=== PATIENT | male | born 1985 | race Caucasian/White ===

== ENCOUNTER 2018-06-06 02:06 | Observation (INO) | payer OTHER ==
[~2018-06-06] VITALS: Ht 190.5 cm; Wt 83.3 kg
[2018-06-06 02:49] LABS: BASOPHILS # (AUTO) 0.07 x10^3/uL (0-0.1); BASOPHILS % (AUTO) 1 % (0-1); EOSINOPHILS # (AUTO) 0.13 x10^3/uL (0-0.4); EOSINOPHILS % (AUTO) 1 % (1-7); LYMPHOCYTES # (AUTO) 3.17 x10^3/uL (1-3.4); LYMPHOCYTES % (AUTO) 28 % (22-44); MD NO; MEAN CORPUSCULAR HEMOGLOBIN 30.4 pg (27.5-34.5); MEAN CORPUSCULAR HGB CONC 34.1 g/dL (33.2-36.2); MEAN PLATELET VOLUME 7.3 fL (7.4-10.4); MONOCYTES # (AUTO) 1.15 x10^3/uL (0.2-0.8); MONOCYTES % (AUTO) 10 % (2-9); NEUTROPHILS % (AUTO) 60 % (42-75); PLATELET COUNT 313 x10^3/uL (130-400); RED BLOOD COUNT 4.75 x10^6/uL (4.38-5.82); RED CELL DISTRIBUTION WIDTH 13.2 % (9.4-14.8)
[2018-06-06 02:54] LABS: AMPHETAMINE SCREEN, URINE Positive (Negative); BARBITURATE SCREEN, URINE Negative (Negative); BENZODIAZEPINE SCREEN, URINE Negative (Negative); CANNABINOID SCREEN, URINE Positive (Negative); COCAINE SCREEN, URINE Negative (Negative); METHADONE SCREEN, URINE Negative (Negative); OPIATE SCREEN, URINE Positive (Negative)
[2018-06-06 02:57] LABS: ALANINE AMINOTRANSFERASE 61 U/L (12-78); ALBUMIN 3.7 g/dL (3.4-5.0); ANION GAP 7 mmol/L (5-15); CALCIUM 8.7 mg/dL (8.5-10.1); CHLORIDE 110 mmol/L (98-107); CREATININE 1.01 mg/dL (0.7-1.3)
[2018-06-06 02:58] LABS: ALKALINE PHOSPHATASE 130 U/L (45-117); BILIRUBIN,TOTAL 0.4 mg/dL (0.2-1.0); TOTAL PROTEIN 7.5 g/dL (6.4-8.2)
[2018-06-06 03:02] LABS: ACETAMINOPHEN < 2 mcg/mL (10-30)
[2018-06-06] MEDS ORDERED: IBUPROFEN 600 MG TABLET PO PRN (09:00)
[2018-06-06] MEDS ORDERED: ACETAMINOPHEN 325 MG TABLET PO PRN (09:00)
[2018-06-06] MEDS ORDERED: POTASSIUM CHLORIDE 20 MEQ TAB.ER.PRT PO ONE (11:00)
[2018-06-06] MEDS ORDERED: POTASSIUM CHLORIDE 20 MEQ TAB.ER.PRT ONE (12:21)
[2018-06-06] MEDS ORDERED: DICYCLOMINE 10 MG CAPSULE ONE (18:30)
[2018-06-06] MEDS ORDERED: LORazepam 1MG TABLET ONE (18:30)
[2018-06-06] MEDS: DICYCLOMINE 10 MG CAPSULE PO SCH (21:00)
[2018-06-06] MEDS: TRAZODONE 150MG TABLET PO SCH (21:00)
[2018-06-07 06:01] LABS: ANION GAP 5 mmol/L (5-15); CALCIUM 8.8 mg/dL (8.5-10.1); CHLORIDE 108 mmol/L (98-107); CREATININE 0.84 mg/dL (0.7-1.3)
[2018-06-07] MEDS: DICYCLOMINE 10 MG CAPSULE PO SCH ×4 (09:00→22:23)
[2018-06-07] MEDS ORDERED: LORazepam 1MG TABLET ONE (10:03)
[2018-06-07] MEDS ORDERED: DICYCLOMINE 10 MG CAPSULE ONE (10:03)
[2018-06-07] MEDS: LORazepam 1MG TABLET PO PRN ×3 (10:05→20:08)
[2018-06-07 18:00] VITALS: BP 117/75
[2018-06-07] MEDS ORDERED: NICOTINE 21 MG/24 HR PATCH.TD24 ONE (18:01)
[2018-06-07] MEDS: NICOTINE 21 MG/24 HR PATCH.TD24 TD SCH (18:05)
[2018-06-07] MEDS: TRAZODONE 150MG TABLET PO SCH (20:08)
[2018-06-08 08:15] VITALS: BP 104/65
[2018-06-08] MEDS: DICYCLOMINE 10 MG CAPSULE PO SCH ×3 (09:25→20:48)
[2018-06-08] MEDS: LORazepam 1MG TABLET PO PRN ×2 (14:55→20:48)
[2018-06-08] MEDS: NICOTINE 21 MG/24 HR PATCH.TD24 TD SCH (15:44)
[2018-06-08 19:46] VITALS: BP 111/68
[2018-06-08] MEDS: TRAZODONE 150MG TABLET PO SCH (20:48)
[2018-06-09 07:59] VITALS: BP 94/57
[2018-06-09] MEDS: DICYCLOMINE 10 MG CAPSULE PO SCH ×3 (09:23→21:11)
[2018-06-09] MEDS: LORazepam 1MG TABLET PO PRN (14:25)
[2018-06-09] MEDS: NICOTINE 21 MG/24 HR PATCH.TD24 TD SCH (17:02)
[2018-06-09 19:51] VITALS: BP 113/75
[2018-06-09] MEDS: TRAZODONE 150MG TABLET PO SCH (21:09)
[2018-06-10] MEDS: LORazepam 1MG TABLET PO PRN ×2 (06:21→16:07)
[2018-06-10] MEDS: DICYCLOMINE 10 MG CAPSULE PO SCH ×3 (08:36→20:17)
[2018-06-10 08:42] VITALS: BP 107/65
[2018-06-10] MEDS: NICOTINE 21 MG/24 HR PATCH.TD24 TD SCH (17:06)
[2018-06-10 19:50] VITALS: BP 115/70
[2018-06-10] MEDS: TRAZODONE 150MG TABLET PO SCH (20:17)
[2018-06-11 07:35] VITALS: BP 101/64
[2018-06-11] MEDS: DICYCLOMINE 10 MG CAPSULE PO SCH (08:43)
== END 2018-06-11 12:30 | disposition home or self-care (01) ==
LOC: ED 03:03 → EDIP 07:46 → 2N 06-07 17:55 → UNDODISOB 06-11 01:00
PROVIDERS: ADMIT Hospitalist; ATTEND Hospitalist
DX: R45.851 Suicidal ideations (principal); D72.829 Elevated white blood cell count, unspecified; E87.6 Hypokalemia; F11.23 Opioid dependence with withdrawal; F15.90 Other stimulant use, unspecified, uncomplicated; F32.9 Major depressive disorder, single episode, unspecified; F41.9 Anxiety disorder, unspecified; G47.00 Insomnia, unspecified; Z91.5 Personal history of self-harm
CPT/HCPCS: 36415; 80048; 80053; 80307; 80329; 85025; 99285; G0378; G0480